=== PATIENT | male | born 1950 ===

== ENCOUNTER → 2018-03-01 | Outpatient (REF) | payer MEDICARE | LOC: M LAB REF 12:23 | DX: E04.2 Nontoxic multinodular goiter (principal) | CPT/HCPCS: 88173 ==

== ENCOUNTER → 2018-06-02 | Outpatient (REF) | payer MEDICARE | LOC: M LAB REF 12:49 | DX: E04.2 Nontoxic multinodular goiter (principal) | CPT/HCPCS: 88173 ==

== ENCOUNTER → 2019-05-26 | Outpatient (REF) | payer MEDICARE | LOC: M LAB REF 09:56 | PROVIDERS: ATTEND Internal Medicine Endocrinology, Diabetes & Metabolism | DX: E04.2 Nontoxic multinodular goiter (principal) ==

== ENCOUNTER → 2021-06-09 | Outpatient (REF) | payer MEDICARE | LOC: M LAB REF 19:20 | PROVIDERS: ATTEND Internal Medicine Endocrinology, Diabetes & Metabolism | DX: E04.2 Nontoxic multinodular goiter (principal) ==